=== PATIENT | male | born 1975 | race Caucasian/White ===

== ENCOUNTER → 2016-06-19 | Outpatient (CLI) | payer OTHER | LOC: M SMT 08:47 | PROVIDERS: ATTEND Urology | DX: E29.1 Testicular hypofunction (principal) ==

== ENCOUNTER → 2016-08-14 | Outpatient (CLI) | payer OTHER | LOC: M SMT 08:08 | PROVIDERS: ATTEND Urology | DX: E29.1 Testicular hypofunction (principal) ==